=== PATIENT | male | born 1960 ===

== ENCOUNTER 2017-09-18 18:30 | Inpatient (IN) | payer MEDICAID, OTHER ==
[2017-09-18] MEDS ORDERED: Sodium Chloride 0.9% 1,000 ML IV ONE (21:21)
--- NOTE | 2017-09-18 21:52 | C.PDOC ---
History Of Present Illness 57 year old male presents to ED with complaints of abdominal pain x3 days status post eating "atypical food" and has a past medical history of diabetes mellitus (does not take medication, drinks "water with lemon"). Patient notes dark stool since ingestion. (+) SOB and AREVALO. also weakness and AREVALO with minimal exertion. no h/o GI bleeds Time Seen by Provider: 09/18/17 21:19 Chief Complaint (Nursing): Abdominal Pain History Per: Patient History/Exam Limitations: no limitations Onset/Duration Of Symptoms: Days (x3) Context: Food Associated Symptoms: Other ((+) SOB, AREVALO, dark stool) Last Bowel Movement: Today Past Medical History Reviewed: Historical Data, Nursing Documentation, Vital Signs Vital Signs: Last Vital Signs Temp 98 F 09/19/17 03:14 Pulse 112 H 09/19/17 03:14 Resp 18 09/19/17 03:14 BP 130/71 09/19/17 03:14 Pulse Ox 100 09/19/17 03:34 - Medical History PMH: Diabetes Family History: States: No Known Family Hx - Social History Hx Alcohol Use: No Hx Substance Use: No - Immunization History Hx Tetanus Toxoid Vaccination: No Hx Influenza Vaccination: No Hx Pneumococcal Vaccination: No Review Of Systems Except As Marked, All Systems Reviewed And Found Negative. Respiratory: Positive for: Shortness of Breath, SOB with Excertion, Other Gastrointestinal: Positive for: Abdominal Pain, Melena ((+) dark stool) Physical Exam - Physical Exam Appears: No Acute Distress, Other (Obese) Skin: No Normal Color, Warm, Dry, Pale Head: Atraumatic Eye(s): bilateral: Normal Inspection, PERRL, EOMI Nose: Normal Throat: Normal Neck: Normal Cardiovascular: Rhythm Regular Respiratory: Normal Breath Sounds Gastrointestinal/Abdominal: Normal Exam, Soft, No Tenderness Back: Normal Inspection Extremity: Normal ROM Neurological/Psych: Oriented x3, Normal Motor, Normal Sensation ED Course And Treatment - Laboratory Results Result Diagrams: 09/18/17 22:08 09/18/17 22:08 Lab Interpretation: Abnormal (++ leukocytosis and significant anemia, no prior labs to compare.) O2 Sat by Pulse Oximetry: 100 (RA) Pulse Ox Interpretation: Normal Progress Note: zosyn, IVF, protonix IV, blood transfusion Reevaluation Time: 00:33 Reassessment Condition: Improved - Physician Consult Information Outcome Of Conversation: 0030: d/w Dr. Luna- Hospitalist- will admit. Medical Decision Making Medical Decision Making: upper vs lower GIB- dark stools argue for upper. Denies diarrhea. 0030: CT pending, already admitted to Hospitalist Service. Obstructive series shows increased stool in right colon. CT FINDINGS: LIMITATIONS: Mild streak/motion artifact. LOWER THORAX: Small hiatal hernia. ABDOMEN: LIVER: No acute abnormality of the liver identified. GALLBLADDER AND BILE DUCTS: No CT evidence of acute cholecystitis. No evidence of significant biliary ductal dilatation. PANCREAS: No CT evidence of acute pancreatitis. SPLEEN: No acute abnormality of the spleen identified. ADRENALS: No acute abnormality of the adrenal glands identified. KIDNEYS AND URETERS: Small fluid density area in the left renal pelvis, most likely representing a peripelvic cyst. No renal stones, hydronephrosis, or hydroureter seen. STOMACH AND BOWEL: No acute abnormality of the stomach, small bowel or colon identified. No evidence of bowel obstruction. No evidence of diverticulitis. APPENDIX: Appendix is seen, and is within normal limits in appearance. PELVIS: BLADDER: No acute abnormality of the bladder identified. REPRODUCTIVE: No acute abnormality of the reproductive organs is seen. ABDOMEN and PELVIS: INTRAPERITONEAL SPACE: No evidence of free intraperitoneal air or fluid. BONES/JOINTS: No acute fractures or other acute bony abnormality noted. SOFT TISSUES: Small umbilical hernia, containing only fat. VASCULATURE: No evidence of abdominal aortic aneurysm. No evidence of periaortic hemorrhage. LYMPH NODES: No evidence of diffuse lymphadenopathy. IMPRESSION: - No evidence of significant acute process. No definite cause for pain identified. - See above for remaining findings. Disposition Doctor Will See Patient In The: Hospital Counseled Patient/Family Regarding: Studies Performed, Diagnosis - Disposition Disposition: HOSPITALIZED Disposition Time: 00:34 Condition: GOOD - Clinical Impression Clinical Impression: GI bleed Physician Patient Turnover Patient Signed Over To: Cassie Garcia Handoff Comments: follow-up CT and to be admitted to Hospitalists.
[2017-09-18] MEDS ORDERED: Sodium Chloride 0.9% 1,000 ML ONE (21:53)
[2017-09-18 22:16] LABS: BASO % 0.2 % (0.0-2.0); HEMOGLOBIN 7.2 g/dL (12.0-18.0); LYMPH # 2.6 K/uL (1.0-4.3); LYMPH % 12.3 % (20.0-40.0); MEAN CELL VOLUME 83.8 fL (80.0-94.0); MEAN CORPUSCULAR HEMOGLOBIN 27.2 pg (27.0-31.0); MEAN CORPUSCULAR HGB CONC 32.5 g/dL (33.0-37.0); MEAN PLATELET VOLUME 9.1 fL (7.2-11.7); MONO # 1.4 K/uL (0.0-0.8); MONO % 6.7 % (0.0-10.0); NEUT # 17.4 K/uL (1.8-7.0); NEUT % 80.8 % (50.0-75.0); NRBC % 0.5 % (0.0-2.0); RBC 2.64 Mil/uL (4.40-5.90); RED CELL DISTRIBUTION WIDTH 13.3 % (11.5-14.5); WHITE BLOOD COUNT 21.5 K/uL (4.8-10.8)
[2017-09-18 22:19] LABS: SQUAMOUS EPITHIAL < 1 /hpf (0-5); URINE BILIRUBIN NEGATIVE (NEGATIVE); URINE BLOOD NEGATIVE (NEGATIVE); URINE CLARITY Clear (Clear); URINE COLOR Straw (YELLOW); URINE GLUCOSE (UA) 1+ mg/dL (Normal); URINE LEUKOCYTE ESTERASE NEG Leu/uL (Negative); URINE NITRATE NEGATIVE (NEGATIVE); URINE PROTEIN NEGATIVE (NEGATIVE); URINE UROBILINOGEN NORMAL mg/dL (0.2-1.0)
[2017-09-18 22:26] LABS: INR 1.1; PROTHROMBIN TIME 12.7 SECONDS (9.7-12.2)
[2017-09-18 22:34] LABS: ALB/GLOB RATIO 1.3 (1.0-2.1); ALBUMIN 3.6 g/dL (3.5-5.0); ALT/SGPT 41 U/L (21-72); AST/SGOT 33 U/L (17-59); BLOOD UREA NITROGEN 23 mg/dL (9-20); CALCIUM 8.2 mg/dl (8.6-10.4); GFR AFRICAN-AMERICAN > 60; GFR NON-AFRICAN AMERICAN > 60; LIPASE 76 U/L (23-300)
[2017-09-19] MEDS ORDERED: Iohexol 350mg/ml 100 ML ONE (00:27)
[2017-09-19] MEDS ORDERED: Piperacillin/Tazobact 3.375 gm 100 ML IV STA (00:32)
--- NOTE | 2017-09-19 01:28 | CP.PCM.HP ---
<Dimas Luna P - Last Filed: 09/19/17 07:07> Meds Allergies/Adverse Reactions: Allergies Allergy/AdvReac Type Severity Reaction Status Date / Time No Known Allergies Allergy Verified 09/18/17 19:04 Results - Vital Signs Recent Vital Signs: Last Vital Signs Temp 98.5 F 09/19/17 06:27 Pulse 98 H 09/19/17 06:27 Resp 20 09/19/17 06:27 BP 114/73 09/19/17 06:27 Pulse Ox 100 09/19/17 06:27 - Labs Result Diagrams: 09/18/17 22:08 09/18/17 22:08 Labs: Laboratory Results - last 24 hr 09/18/17 09/18/17 09/18/17 22:08 22:08 22:08 WBC 21.5 H RBC 2.64 L Hgb 7.2 L Hct 22.2 L MCV 83.8 MCH 27.2 MCHC 32.5 L RDW 13.3 Plt Count 318 MPV 9.1 Neut % (Auto) 80.8 H Lymph % (Auto) 12.3 L [place] % (Auto) 6.7 Eos % (Auto) 0.0 Baso % (Auto) 0.2 Neut # 17.4 H Lymph # 2.6 [place] # 1.4 H Eos # 0.0 Baso # 0.0 PT 12.7 H INR 1.1 APTT 23 Sodium Potassium Chloride Carbon Dioxide Anion Gap BUN Creatinine Est GFR ( Amer) Est GFR (Non-Af Amer) POC Glucose (mg/dL) Random Glucose Calcium Total Bilirubin AST ALT Alkaline Phosphatase Total Protein Albumin Globulin Albumin/Globulin Ratio Lipase Urine Color Straw Urine Clarity Clear Urine pH 5.0 Ur Specific [place] 1.020 Urine Protein Negative Urine Glucose (UA) 1+ H Urine Ketones Negative Urine Blood Negative Urine Nitrate Negative Urine Bilirubin Negative Urine Urobilinogen Normal Ur Leukocyte Esterase Neg Urine WBC (Auto) 2 Urine RBC (Auto) < 1 Ur Squamous Epith Cells < 1 Blood Type Blood Type Confirm Antibody Screen 09/18/17 09/19/17 09/19/17 22:08 00:56 06:44 WBC RBC Hgb Hct MCV MCH MCHC RDW Plt Count MPV Neut % (Auto) Lymph % (Auto) [place] % (Auto) Eos % (Auto) Baso % (Auto) Neut # Lymph # [place] # Eos # Baso # PT INR APTT Sodium 127 L Potassium 4.0 Chloride 94 L Carbon Dioxide 24 Anion Gap 14 BUN 23 H Creatinine 0.8 Est GFR ( Amer) > 60 Est GFR (Non-Af Amer) > 60 POC Glucose (mg/dL) 147 H Random Glucose 159 H Calcium 8.2 L Total Bilirubin 0.3 AST 33 ALT 41 Alkaline Phosphatase 41 Total Protein 6.4 Albumin 3.6 Globulin 2.8 Albumin/Globulin Ratio 1.3 Lipase 76 Urine Color Urine Clarity Urine pH Ur Specific [place] Urine Protein Urine Glucose (UA) Urine Ketones Urine Blood Urine Nitrate Urine Bilirubin Urine Urobilinogen Ur Leukocyte Esterase Urine WBC (Auto) Urine RBC (Auto) Ur Squamous Epith Cells Blood Type B POSITIVE Blood Type Confirm B POSITIVE Antibody Screen Negative Attending/Attestation - Attestation I have personally seen and examined this patient.: Yes I have fully participated in the care of the patient.: Yes I have reviewed all pertinent clinical information: Yes Notes (Text): Assessment * Symptomatic anemia from it appears as UGI bleeding, pt present with olaf for 3 days, exposure to dicofenac for chronic knee arthritis, maintaining hemodynamics. Plan * PRBC will need 2-3 units * GI consult * PPI iv * Counselled about NSAIDs <Kate Hernandez - Last Filed: 09/19/17 12:09> History of Present Illness - History of Present Illness History of Present Illness: Medicine Note for Hospitalist Service CC: dark stools x 5 days HPI: 57M with PMHx of Osteoarthritis presents to the ED with dark stools x 5 days. Patient reports he went out to eat Monday and ate a bread custard, afterwards he had several episodes of diarrhea. After his 2-3 episode, he noted dark, tarry stools. He continued to feel feverish, chills, nausea, abdominal pain, SOB, dizziness, and 2-4 dark tarry stools per day. Patient came to the ED due to weakness and fatigue and persistent dark stools. Denied any prior EGD, Colonoscopy. Denied fever, chills, headache, chest pain, n/v/d/c, or urinary symptoms. PMHx: Osteoarthritis, IGT PSHx: Denied Meds: Heavy Diclofenac use for OA All: NKDA SHx: Denied tobacco, ETOH, or illicit drug use FHx: Unremarkable PMD: None; just moved to [place] from 2-3 months ago Present on Admission - Present on Admission Any Indicators Present on Admission: No Past Patient History - Past Social History Smoking Status: Never Smoked - PSYCHIATRIC Hx Substance Use: No - SURGICAL HISTORY Hx Surgeries: No - ANESTHESIA Hx Anesthesia: No Physical Exam - Constitutional Appears: No Acute Distress - Head Exam Head Exam: NORMAL INSPECTION, NORMOCEPHALIC - Eye Exam Eye Exam: EOMI, Normal appearance, PERRL Pupil Exam: NORMAL ACCOMODATION - ENT Exam ENT Exam: Mucous Membranes Dry - Respiratory Exam Respiratory Exam: Clear to Auscultation Bilateral, NORMAL BREATHING PATTERN. absent: Decreased Breath Sounds - Cardiovascular Exam Cardiovascular Exam: Tachycardia - GI/Abdominal Exam GI & Abdominal Exam: Normal Bowel Sounds, Soft, Tenderness (TTP RLQ ) - Rectal Exam Rectal Exam: Deferred - Extremities Exam Extremities exam: Positive for: normal inspection, pedal pulses present. Negative for: pedal edema, tenderness - Back Exam Back exam: NORMAL INSPECTION - Neurological Exam Neurological exam: Alert, CN II-XII Intact, Oriented x3 - Psychiatric Exam Psychiatric exam: Normal Affect, Normal Mood - Skin Skin Exam: Dry, Intact, Pallor Results - Vital Signs Recent Vital Signs: Last Vital Signs Temp 98.4 F 09/18/17 19:02 Pulse 112 H 09/18/17 19:02 Resp 18 09/18/17 19:02 BP 110/71 09/18/17 19:02 Pulse Ox 100 09/19/17 00:47 - Labs Result Diagrams: 09/19/17 06:36 09/19/17 06:36 Labs: Laboratory Results - last 24 hr 09/18/17 09/18/17 09/18/17 22:08 22:08 22:08 WBC 21.5 H RBC 2.64 L Hgb 7.2 L Hct 22.2 L MCV 83.8 MCH 27.2 MCHC 32.5 L RDW 13.3 Plt Count 318 MPV 9.1 Neut % (Auto) 80.8 H Lymph % (Auto) 12.3 L [place] % (Auto) 6.7 Eos % (Auto) 0.0 Baso % (Auto) 0.2 Neut # 17.4 H Lymph # 2.6 [place] # 1.4 H Eos # 0.0 Baso # 0.0 PT 12.7 H INR 1.1 APTT 23 Sodium Potassium Chloride Carbon Dioxide Anion Gap BUN Creatinine Est GFR ( Amer) Est GFR (Non-Af Amer) Random Glucose Calcium Total Bilirubin AST ALT Alkaline Phosphatase Total Protein Albumin Globulin Albumin/Globulin Ratio Lipase Urine Color Straw Urine Clarity Clear Urine pH 5.0 Ur Specific [place] 1.020 Urine Protein Negative Urine Glucose (UA) 1+ H Urine Ketones Negative Urine Blood Negative Urine Nitrate Negative Urine Bilirubin Negative Urine Urobilinogen Normal Ur Leukocyte Esterase Neg Urine WBC (Auto) 2 Urine RBC (Auto) < 1 Ur Squamous Epith Cells < 1 09/18/17 22:08 WBC RBC Hgb Hct MCV MCH MCHC RDW Plt Count MPV Neut % (Auto) Lymph % (Auto) [place] % (Auto) Eos % (Auto) Baso % (Auto) Neut # Lymph # [place] # Eos # Baso # PT INR APTT Sodium 127 L Potassium 4.0 Chloride 94 L Carbon Dioxide 24 Anion Gap 14 BUN 23 H Creatinine 0.8 Est GFR ( Amer) > 60 Est GFR (Non-Af Amer) > 60 Random Glucose 159 H Calcium 8.2 L Total Bilirubin 0.3 AST 33 ALT 41 Alkaline Phosphatase 41 Total Protein 6.4 Albumin 3.6 Globulin 2.8 Albumin/Globulin Ratio 1.3 Lipase 76 Urine Color Urine Clarity Urine pH Ur Specific [place] Urine Protein Urine Glucose (UA) Urine Ketones Urine Blood Urine Nitrate Urine Bilirubin Urine Urobilinogen Ur Leukocyte Esterase Urine WBC (Auto) Urine RBC (Auto) Ur Squamous Epith Cells Assessment & Plan - Assessment and Plan (Free Text) Assessment: 57M with PMHx of Osteoarthritis presents to the ED with dark stools x 5 days, suspecting Upper GI Bleed. Plan: Upper GI Bleed Hx Heavy NSAID Use GI Consulted - Dr. Campbell- help appreciated Tachycardia, H/H 7.2, 6.7 this morning Will be transfused total 2-3 units today, consent in chart CT Abdomen/ Pelvis: No evidence of significant acute process. No definite cause for pain identified. S/P EGD- no active bleed - esophagitis, medium sized hiatal hernia Possible Colonoscopy Meds: NS @ 100cc/hr Protonix 40mg IVP Q12H Leukocytosis Afebrile, leukocytosis , no bandemia Continue to monitor Hx IGT Accucheck ISS- low F/U HGA1C Prophylactic Measures GI PPX: Protonix 40mg IVP Q12H DVT PPX: SCDs, held VTE due to active GI bleed DW Dr. Luna, Kate Hernandez DO, PGY-1
[2017-09-19] MEDS ORDERED: Sodium Chloride 0.9% 1,000 ML IV SCH (02:30)
--- NOTE | 2017-09-19 03:02 | CT ---
EXAM: CT Abdomen and Pelvis With Intravenous Contrast EXAM DATE/TIME: 09/18/2017 11:32 PM CLINICAL HISTORY: 57 years old, male; Pain; Abdominal pain; Additional info: Abd pain, leukocytosis, ? diverticulitis TECHNIQUE: Axial computed tomography images of the abdomen and pelvis with intravenous contrast. All CT scans at this facility use one or more dose reduction techniques, viz.: automated exposure control; ma/kV adjustment per patient size (including targeted exams where dose is matched to indication; i.e. head); or iterative reconstruction technique. Coronal and sagittal reformatted images were created and reviewed. CONTRAST: 100 mL of [id number] administered intravenously. COMPARISON: No relevant prior studies available. FINDINGS: LIMITATIONS: Mild streak/motion artifact. LOWER THORAX: Small hiatal hernia. ABDOMEN: LIVER: No acute abnormality of the liver identified. GALLBLADDER AND BILE DUCTS: No CT evidence of acute cholecystitis. No evidence of significant biliary ductal dilatation. PANCREAS: No CT evidence of acute pancreatitis. SPLEEN: No acute abnormality of the spleen identified. ADRENALS: No acute abnormality of the adrenal glands identified. KIDNEYS AND URETERS: Small fluid density area in the left renal pelvis, most likely representing a peripelvic cyst. No renal stones, hydronephrosis, or hydroureter seen. STOMACH AND BOWEL: No acute abnormality of the stomach, small bowel or colon identified. No evidence of bowel obstruction. No evidence of diverticulitis. APPENDIX: Appendix is seen, and is within normal limits in appearance. PELVIS: BLADDER: No acute abnormality of the bladder identified. REPRODUCTIVE: No acute abnormality of the reproductive organs is seen. ABDOMEN and PELVIS: INTRAPERITONEAL SPACE: No evidence of free intraperitoneal air or fluid. BONES/JOINTS: No acute fractures or other acute bony abnormality noted. SOFT TISSUES: Small umbilical hernia, containing only fat. VASCULATURE: No evidence of abdominal aortic aneurysm. No evidence of periaortic hemorrhage. LYMPH NODES: No evidence of diffuse lymphadenopathy. IMPRESSION: - No evidence of significant acute process. No definite cause for pain identified. - See above for remaining findings.
[2017-09-19 07:15] LABS: BASO # 0.1 K/uL (0.0-0.2); BASO % 0.4 % (0.0-2.0); EOS % 0.2 % (0.0-4.0); HEMOGLOBIN 6.7 g/dL (12.0-18.0); LYMPH # 3.6 K/uL (1.0-4.3); LYMPH % 18.8 % (20.0-40.0); MEAN CELL VOLUME 84.4 fL (80.0-94.0); MEAN CORPUSCULAR HEMOGLOBIN 27.7 pg (27.0-31.0); MEAN CORPUSCULAR HGB CONC 32.8 g/dL (33.0-37.0); MONO # 1.6 K/uL (0.0-0.8); MONO % 8.3 % (0.0-10.0); NEUT # 13.8 K/uL (1.8-7.0); NEUT % 72.3 % (50.0-75.0); NRBC % 0.2 % (0.0-2.0); RBC 2.43 Mil/uL (4.40-5.90); RED CELL DISTRIBUTION WIDTH 13.2 % (11.5-14.5); WHITE BLOOD COUNT 19.1 K/uL (4.8-10.8)
[2017-09-19 07:17] LABS: ALB/GLOB RATIO 1.2 (1.0-2.1); ALBUMIN 3.3 g/dL (3.5-5.0); ALT/SGPT 41 U/L (21-72); AST/SGOT 28 U/L (17-59); BLOOD UREA NITROGEN 17 mg/dL (9-20); CALCIUM 7.8 mg/dl (8.6-10.4); GFR AFRICAN-AMERICAN > 60; GFR NON-AFRICAN AMERICAN > 60; MAGNESIUM 1.8 mg/dL (1.6-2.3)
[2017-09-19] MEDS ORDERED: Propofol 10 mg/ml Inj (20 ML) ONE (07:34)
[2017-09-19] MEDS ORDERED: Etomidate 20 mg/10ml Inj IV ONE ×3 (07:34→07:37)
--- NOTE | 2017-09-19 07:36 | CP.PCM.CON ---
History of Present Illness - History of Present Illness History of Present Illness: 3 days abdom pain- vague and black stool. LAst black stool yest pm. Weakness. ++NSAIDs for pain x 1-2 months. No alcohol Review of Systems - Constitutional Constitutional: Fatigue. absent: Headache, Weight Gain, Weight Loss - EENT Eyes: absent: Photophobia Nose/Mouth/Throat: absent: Odynophagia - Cardiovascular Cardiovascular: absent: Chest Pain, Dyspnea - Respiratory Respiratory: absent: Dyspnea, Hemoptysis, Wheezing - Gastrointestinal Gastrointestinal: Melena. absent: Coffee Ground Emesis, Constipation, Diarrhea , Hematemesis, Vomiting - Genitourinary Genitourinary: absent: Flank Pain, Hematuria - Musculoskeletal Musculoskeletal: absent: Muscle Cramps, Muscle Weakness - Integumentary Integumentary: absent: Jaundice - Neurological Neurological: absent: Convulsions - Psychiatric Psychiatric: absent: Confusion Past Patient History - Past Medical History & Family History Past Medical History?: Yes - Past Social History Smoking Status: Never Smoked - CARDIAC Hx Cardiac Disorders: No - PULMONARY Hx Respiratory Disorders: No - NEUROLOGICAL Hx Neurological Disorder: No - HEENT Hx HEENT Problems: No - RENAL Hx Chronic Kidney Disease: No - ENDOCRINE/METABOLIC Hx Endocrine Disorders: No - HEMATOLOGICAL/ONCOLOGICAL Hx Blood Disorders: No - INTEGUMENTARY Hx Dermatological Problems: No - MUSCULOSKELETAL/RHEUMATOLOGICAL Hx Musculoskeletal Disorders: Yes Hx Arthritis: Yes Hx Falls: No - GASTROINTESTINAL Hx Gastrointestinal Disorders: No - GENITOURINARY/GYNECOLOGICAL Hx Genitourinary Disorders: No - PSYCHIATRIC Hx Psychophysiologic Disorder: No Hx Substance Use: No - SURGICAL HISTORY Hx Surgeries: No - ANESTHESIA Hx Anesthesia: No Meds Allergies/Adverse Reactions: Allergies Allergy/AdvReac Type Severity Reaction Status Date / Time No Known Allergies Allergy Verified 09/18/17 19:04 - Medications Medications: Current Medications Sodium Chloride (Sodium Chloride 0.9%) 1,000 mls @ 100 mls/hr IV .Q10H ESTEFANIA Last Admin: 09/19/17 02:48 Dose: 100 mls/hr Pantoprazole Sodium (Protonix Inj) 40 mg IVP Q12H [facility] Pneumococcal Polyvalent Vaccine (Pneumovax 23 Vaccine) 0.5 ml IM .ONCE ONE Stop: 09/22/17 14:01 Physical Exam - Constitutional Appears: Well - Respiratory Exam Respiratory Exam: Clear to Auscultation Bilateral - Cardiovascular Exam Cardiovascular Exam: RRR - GI/Abdominal Exam GI & Abdominal Exam: Normal Bowel Sounds, Soft. absent: Distended, Guarding, Mass, Rebound, Tenderness - Extremities Exam Extremities exam: Negative for: calf tenderness - Neurological Exam Neurological exam: Alert, Oriented x3 Results - Vital Signs Recent Vital Signs: Last Vital Signs Temp 98.5 F 09/19/17 07:11 Pulse 98 H 09/19/17 07:11 Resp 20 09/19/17 07:11 BP 114/73 09/19/17 07:11 Pulse Ox 100 09/19/17 07:11 - Labs Result Diagrams: 09/19/17 06:36 09/19/17 06:36 Labs: Laboratory Results - last 24 hr 09/18/17 09/18/17 09/18/17 22:08 22:08 22:08 WBC 21.5 H RBC 2.64 L Hgb 7.2 L Hct 22.2 L MCV 83.8 MCH 27.2 MCHC 32.5 L RDW 13.3 Plt Count 318 MPV 9.1 Neut % (Auto) 80.8 H Lymph % (Auto) 12.3 L [place] % (Auto) 6.7 Eos % (Auto) 0.0 Baso % (Auto) 0.2 Neut # 17.4 H Lymph # 2.6 [place] # 1.4 H Eos # 0.0 Baso # 0.0 PT 12.7 H INR 1.1 APTT 23 Sodium Potassium Chloride Carbon Dioxide Anion Gap BUN Creatinine Est GFR ( Amer) Est GFR (Non-Af Amer) POC Glucose (mg/dL) Random Glucose Calcium Phosphorus Magnesium Total Bilirubin AST ALT Alkaline Phosphatase Total Protein Albumin Globulin Albumin/Globulin Ratio Lipase Urine Color Straw Urine Clarity Clear Urine pH 5.0 Ur Specific [place] 1.020 Urine Protein Negative Urine Glucose (UA) 1+ H Urine Ketones Negative Urine Blood Negative Urine Nitrate Negative Urine Bilirubin Negative Urine Urobilinogen Normal Ur Leukocyte Esterase Neg Urine WBC (Auto) 2 Urine RBC (Auto) < 1 Ur Squamous Epith Cells < 1 Blood Type Blood Type Confirm Antibody Screen 09/18/17 09/19/17 09/19/17 22:08 00:56 06:36 WBC 19.1 H RBC 2.43 L Hgb 6.7 L Hct 20.5 L MCV 84.4 MCH 27.7 MCHC 32.8 L RDW 13.2 Plt Count 267 MPV 9.0 Neut % (Auto) 72.3 Lymph % (Auto) 18.8 L [place] % (Auto) 8.3 Eos % (Auto) 0.2 Baso % (Auto) 0.4 Neut # 13.8 H Lymph # 3.6 [place] # 1.6 H Eos # 0.0 Baso # 0.1 PT INR APTT Sodium 127 L Potassium 4.0 Chloride 94 L Carbon Dioxide 24 Anion Gap 14 BUN 23 H Creatinine 0.8 Est GFR ( Amer) > 60 Est GFR (Non-Af Amer) > 60 POC Glucose (mg/dL) Random Glucose 159 H Calcium 8.2 L Phosphorus Magnesium Total Bilirubin 0.3 AST 33 ALT 41 Alkaline Phosphatase 41 Total Protein 6.4 Albumin 3.6 Globulin 2.8 Albumin/Globulin Ratio 1.3 Lipase 76 Urine Color Urine Clarity Urine pH Ur Specific [place] Urine Protein Urine Glucose (UA) Urine Ketones Urine Blood Urine Nitrate Urine Bilirubin Urine Urobilinogen Ur Leukocyte Esterase Urine WBC (Auto) Urine RBC (Auto) Ur Squamous Epith Cells Blood Type B POSITIVE Blood Type Confirm B POSITIVE Antibody Screen Negative 09/19/17 09/19/17 09/19/17 06:36 06:36 06:44 WBC RBC Hgb Hct MCV MCH MCHC RDW Plt Count MPV Neut % (Auto) Lymph % (Auto) [place] % (Auto) Eos % (Auto) Baso % (Auto) Neut # Lymph # [place] # Eos # Baso # PT INR APTT Sodium 132 Potassium 4.0 Chloride 98 Carbon Dioxide 22 Anion Gap 17 BUN 17 Creatinine 0.9 Est GFR ( Amer) > 60 Est GFR (Non-Af Amer) > 60 POC Glucose (mg/dL) 147 H Random Glucose 112 H Calcium 7.8 L Phosphorus 3.7 Magnesium 1.8 Total Bilirubin 0.4 AST 28 ALT 41 Alkaline Phosphatase 33 L Total Protein 6.0 L Albumin 3.3 L Globulin 2.7 Albumin/Globulin Ratio 1.2 Lipase Urine Color Urine Clarity Urine pH Ur Specific [place] Urine Protein Urine Glucose (UA) Urine Ketones Urine Blood Urine Nitrate Urine Bilirubin Urine Urobilinogen Ur Leukocyte Esterase Urine WBC (Auto) Urine RBC (Auto) Ur Squamous Epith Cells Blood Type Blood Type Confirm Antibody Screen Assessment & Plan (1) Abdominal pain Assessment and Plan: consider ulcer. CT noted Status: Acute (2) GI bleed Assessment and Plan: Consider ulcer, MWT, ectasia. Also hyponatremia and elevated WBC, REC: Protonix NPO EGD today- due to serious GI bleed. F/U CBC, WBC, Na Status: Acute
[2017-09-19] MEDS ORDERED: Dextrose 50% SYRINGE Inj (50 ml) IV PRN (09:02)
[2017-09-19] MEDS ORDERED: Glucagon Recombinant 1 mg Inj IM PRN (09:02)
--- NOTE | 2017-09-19 13:14 | RAD ---
PROCEDURE: Radiographs of the chest and abdomen (obstructive series) HISTORY: abd pain COMPARISON: No prior. TECHNIQUE: AP radiograph of the chest, with upright and supine radiographs of the abdomen. FINDINGS: CHEST: Lungs: Clear. Cardiovascular: Normal size heart. No pulmonary vascular congestion. Pleura: No pleural fluid. No pneumothorax. Other findings: Bilateral shoulder arthrosis ABDOMEN AND PELVIS: Bowel: Stool retention.. No evidence of mechanical obstruction. Free air: None. Bones: Unremarkable. Other findings: None. IMPRESSION: No infiltrate. Stool retention.. No evidence of mechanical bowel obstruction. Bilateral shoulder arthrosis
[2017-09-19] MEDS: (Novolin R) Insulin Human Regular 100 units/ml vial SC SCH ×2 (17:10→22:47)
--- NOTE | 2017-09-19 19:28 | CP.PCM.PN ---
Subjective - Date & Time of Evaluation Date of Evaluation: 09/19/17 Time of Evaluation: 08:45 - Subjective Subjective: Hospitalist Progress Note Patient was seen and examined at 8:45 AM 09/19/17 in the [facility] 57 year old male who was admitted earlier this morning with complaints of black stools. He had an unspecified sandwich on this past Monday. Shortly afterwards, he had soft black movement and has been having at least 2 of these per day since. Associated with with the black bowel movements is SOB and Lightheadedness and therefore he came to the ER. CT Abdomen/Pelvis did not reveal any significant acute process (please see full report). Obstruction Series did NOT reveal any obstruction but did show retain stool. His Hgb was in the low 7 and he was transfused 1 unit of PRBC at the time of exam 09/19/17 and 2 more units ordered as HgB dropped further to 6.7. Upper EGD preliminary revealed esophagitis but no ulcers. Bedside Guaiac was +. NO chest pain NO palpitations NO dysphagia/odynophagia NO abdominal pain NO n/v/d/c NO headache NO changes in vision NO changes in hearing NO paresthesias NO edema Exam: General: AAOX3, NAD HEENT: NCA, EOMI, PERRLA, NO thyromegaly, NO cervical/supraclavicular/ submandibular lymphadenopathy, NO pharyngeal erythema/exudate Cardio: NS1 and NS2, NO M/R/G Resp: CTA B/L , NO R/R/W GI: BSx4, soft, NT, ND, NO HSM, NO guarding/rebound tenderness Ext: NO edema, Pulses are strong and equal, Capillary Refill is 2 seconds Neuro: CN II through XII are grossly intact Assessment and Plan: 1). Anemia Secondary to GI Bleed F/U official Upper EGD report Transfuse 2 more units PRBC and follow up repeat CBC at 10 PM and transfuse another unit should the HgB still be below 8 Protonix 40 mg IV Q12H Consider Colonoscopy Will follow up with GI Dr. Campbell whose help is appreciated 2). Leukocytosis NO shift noted Chest X Ray (as part of obstruction series) shows NO active disease There is NO fever and rest of vitals are stable Stress response? Follow up repeat CBC at 10 PM tonight 3). Hyponatremia This has resolved 4). Hx DM 2 ? F/U HgBA1C, Lipid Panel, TSH, T4 Hypoglycemic Protocol RISS ACHS 5). Prophylaxis Protonix as above HOLD anticoagulation considering the Anemia from the likely GI Bleed Colace 100 mg PO 2x/day Heart Healthy 2 gm Na Diabetic Diet He has NO Advance Directive He would like to be FULL CODE He has designated Chanel Sorto [phone] as his Health Care Proxy Jayson Agnel D.O. Objective - Vital Signs/Intake and Output Vital Signs (last 24 hours): Temp Pulse Resp BP Pulse Ox 98.3 F 88 18 135/86 100 09/19/17 15:19 09/19/17 15:19 09/19/17 15:19 09/19/17 15:19 09/19/17 15:19 Intake and Output: 09/19/17 09/20/17 18:59 06:59 Intake Total 525 Balance 525 - Medications Medications: Current Medications Dextrose (Dextrose 50% Inj) 0 ml IV STAT PRN; Protocol PRN Reason: Hypoglycemia Protocol Dextrose (Glutose 15) 0 gm PO ONCE PRN; Protocol PRN Reason: Hypoglycemia Protocol Glucagon (Glucagen Diagnostic Kit) 0 mg IM STAT PRN; Protocol PRN Reason: Hypoglycemia Protocol Sodium Chloride (Sodium Chloride 0.9%) 1,000 mls @ 100 mls/hr IV .Q10H [facility] Last Admin: 09/19/17 02:48 Dose: 100 mls/hr Dextrose (Dextrose 5% In Water 1000 Ml) 1,000 mls @ 0 mls/hr IV .Q0M PRN; Protocol; Per Protocol PRN Reason: Hypoglycemia Protocol Insulin Human Regular (Novolin R) 0 unit SC ACHS [facility] PRN Reason: Protocol Pantoprazole Sodium (Protonix Inj) 40 mg IVP Q12H [facility] Pneumococcal Polyvalent Vaccine (Pneumovax 23 Vaccine) 0.5 ml IM .ONCE ONE Stop: 09/22/17 14:01 - Labs Labs: 09/19/17 16:52 09/19/17 06:36 PT 12.7 SECONDS (9.7-12.2) H 09/18/17 22:08 INR 1.1 09/18/17 22:08 APTT 23 SECONDS (21-34) 09/18/17 22:08
--- NOTE | 2017-09-19 19:57 | CP.PCM.PN ---
Subjective - Date & Time of Evaluation Date of Evaluation: 09/19/17 Time of Evaluation: 08:55 - Subjective Subjective: Patient seen and examined at bedside. Per nursing staff no acute events occurred overnight . The patient is reporting some abdominal discomfort today. The patient denies any chest pain, fevers, chills, lightheadedness, dizziness, syncopal episodes, changes in vision, headaches, sore throat, numbness or tingling in the hands or feet, or any other complaints. Objective - Vital Signs/Intake and Output Vital Signs (last 24 hours): Temp Pulse Resp BP Pulse Ox 98.3 F 88 18 135/86 100 09/19/17 15:19 09/19/17 15:19 09/19/17 15:19 09/19/17 15:19 09/19/17 15:19 Intake and Output: 09/19/17 09/20/17 18:59 06:59 Intake Total 525 Balance 525 - Medications Medications: Current Medications Dextrose (Dextrose 50% Inj) 0 ml IV STAT PRN; Protocol PRN Reason: Hypoglycemia Protocol Dextrose (Glutose 15) 0 gm PO ONCE PRN; Protocol PRN Reason: Hypoglycemia Protocol Docusate Sodium (Colace) 100 mg PO BID [facility] Glucagon (Glucagen Diagnostic Kit) 0 mg IM STAT PRN; Protocol PRN Reason: Hypoglycemia Protocol Dextrose (Dextrose 5% In Water 1000 Ml) 1,000 mls @ 0 mls/hr IV .Q0M PRN; Protocol; Per Protocol PRN Reason: Hypoglycemia Protocol Insulin Human Regular (Novolin R) 0 unit SC ACHS [facility] PRN Reason: Protocol Pantoprazole Sodium (Protonix Inj) 40 mg IVP Q12H [facility] Pneumococcal Polyvalent Vaccine (Pneumovax 23 Vaccine) 0.5 ml IM .ONCE ONE Stop: 09/22/17 14:01 - Labs Labs: 09/19/17 16:52 09/19/17 06:36 PT 12.7 SECONDS (9.7-12.2) H 09/18/17 22:08 INR 1.1 09/18/17 22:08 APTT 23 SECONDS (21-34) 09/18/17 22:08 - Head Exam Head Exam: ATRAUMATIC, NORMAL INSPECTION, NORMOCEPHALIC - Eye Exam Eye Exam: EOMI, Normal appearance, PERRL. absent: Periorbital tenderness Pupil Exam: NORMAL ACCOMODATION, PERRL. absent: Irregular, Unequal - ENT Exam ENT Exam: Mucous Membranes Moist, Normal Exam, Normal Oropharynx - Neck Exam Neck Exam: Normal Inspection. absent: Lymphadenopathy, Thyromegaly - Respiratory Exam Respiratory Exam: Clear to Ausculation Bilateral, NORMAL BREATHING PATTERN. absent: Chest Wall Tenderness, Prolonged Expiratory Phase, Respiratory Distress - Cardiovascular Exam Cardiovascular Exam: REGULAR RHYTHM, +S1, +S2 - GI/Abdominal Exam GI & Abdominal Exam: Tenderness, Normal Bowel Sounds. absent: Hyperactive Bowel Sounds - Extremities Exam Extremities Exam: absent: Joint Swelling, Pedal Edema, Tenderness - Back Exam Back Exam: NORMAL INSPECTION. absent: CVA tenderness (R), paraspinal tenderness - Neurological Exam Neurological Exam: Alert, Awake, CN II-XII Intact, Normal Gait, Oriented x3 - Psychiatric Exam Psychiatric exam: Normal Affect, Normal Mood - Skin Skin Exam: Dry, Intact Assessment and Plan - Assessment and Plan (Free Text) Plan: Assessment and Plan: 1). Anemia Secondary to GI Bleed F/U official Upper EGD report Transfuse 2 more units PRBC and follow up repeat CBC at 10 PM and transfuse another unit should the HgB still be below 8 Protonix 40 mg IV Q12H Consider Colonoscopy Will follow up with GI Dr. Campbell whose help is appreciated 2). Leukocytosis NO shift noted Chest X Ray (as part of obstruction series) shows NO active disease There is NO fever and rest of vitals are stable Stress response? Follow up repeat CBC at 10 PM tonight 3). Hyponatremia This has resolved 4). Hx DM 2 ? F/U HgBA1C, Lipid Panel, TSH, T4 Hypoglycemic Protocol RISS ACHS 5). Prophylaxis Protonix as above HOLD anticoagulation considering the Anemia from the likely GI Bleed Colace 100 mg PO 2x/day Heart Healthy 2 gm Na Diabetic Diet He has NO Advance Directive He would like to be FULL CODE He has designated Chanel Sorto [phone] as his Health Care Proxy
[2017-09-20] MEDS: (Novolin R) Insulin Human Regular 100 units/ml vial SC SCH ×2 (07:36→22:42)
[2017-09-20 07:52] LABS: BASO # 0.1 K/uL (0.0-0.2); BASO % 0.6 % (0.0-2.0); EOS # 0.1 K/uL (0.0-0.7); EOS % 0.8 % (0.0-4.0); HEMOGLOBIN 8.9 g/dL (12.0-18.0); LYMPH # 2.8 K/uL (1.0-4.3); LYMPH % 20.3 % (20.0-40.0); MEAN CELL VOLUME 83.2 fL (80.0-94.0); MEAN CORPUSCULAR HEMOGLOBIN 28.2 pg (27.0-31.0); MEAN CORPUSCULAR HGB CONC 33.8 g/dL (33.0-37.0); MONO % 7.5 % (0.0-10.0); NEUT # 9.9 K/uL (1.8-7.0); NEUT % 70.8 % (50.0-75.0); NRBC % 0.4 % (0.0-2.0); RBC 3.15 Mil/uL (4.40-5.90)
[2017-09-20 08:50] LABS: ALB/GLOB RATIO 1.2 (1.0-2.1); ALBUMIN 3.1 g/dL (3.5-5.0); ALT/SGPT 44 U/L (21-72); AST/SGOT 29 U/L (17-59); BLOOD UREA NITROGEN 12 mg/dL (9-20); CALCIUM 7.9 mg/dl (8.6-10.4); GFR AFRICAN-AMERICAN > 60; GFR NON-AFRICAN AMERICAN > 60; HDL CHOLESTEROL 26 mg/dL (30-70); MAGNESIUM 1.9 mg/dL (1.6-2.3)
[2017-09-20 08:54] LABS: LDL CHOLESTEROL 106 mg/dL (0-129)
--- NOTE | 2017-09-20 11:53 | CP.PCM.PN ---
Subjective - Date & Time of Evaluation Date of Evaluation: 09/20/17 Time of Evaluation: 11:50 - Subjective Subjective: F/U GI bleed. Reports constiaption. No bleeding Denies CP, SOB, fever, chills, SZ, LOC, MCDONALD, cough Objective - Vital Signs/Intake and Output Vital Signs (last 24 hours): Temp Pulse Resp BP Pulse Ox 98.1 F 81 20 128/77 97 09/20/17 07:00 09/20/17 07:00 09/20/17 07:00 09/20/17 07:00 09/20/17 07:00 Intake and Output: 09/20/17 09/20/17 06:59 18:59 Intake Total 325 Balance 325 - Medications Medications: Current Medications Acetaminophen (Tylenol 325mg Tab) 650 mg PO Q6 PRN PRN Reason: Headache Last Admin: 09/20/17 08:51 Dose: 650 mg Dextrose (Dextrose 50% Inj) 0 ml IV STAT PRN; Protocol PRN Reason: Hypoglycemia Protocol Dextrose (Glutose 15) 0 gm PO ONCE PRN; Protocol PRN Reason: Hypoglycemia Protocol Docusate Sodium (Colace) 100 mg PO BID [facility] Last Admin: 09/20/17 10:59 Dose: 100 mg Glucagon (Glucagen Diagnostic Kit) 0 mg IM STAT PRN; Protocol PRN Reason: Hypoglycemia Protocol Dextrose (Dextrose 5% In Water 1000 Ml) 1,000 mls @ 0 mls/hr IV .Q0M PRN; Protocol; Per Protocol PRN Reason: Hypoglycemia Protocol Insulin Human Regular (Novolin R) 0 unit SC ACHS [facility] PRN Reason: Protocol Last Admin: 09/20/17 07:36 Dose: Not Given Pantoprazole Sodium (Protonix Inj) 40 mg IVP Q12H [facility] Last Admin: 09/20/17 08:14 Dose: 40 mg Pneumococcal Polyvalent Vaccine (Pneumovax 23 Vaccine) 0.5 ml IM .ONCE ONE Stop: 09/22/17 14:01 Polyethylene Glycol/Electrolytes (Golytely) 4,000 ml PO ONCE ONE Stop: 09/20/17 18:01 - Labs Labs: 09/20/17 07:36 09/20/17 07:36 PT 12.7 SECONDS (9.7-12.2) H 09/18/17 22:08 INR 1.1 09/18/17 22:08 APTT 23 SECONDS (21-34) 09/18/17 22:08 - Constitutional Appears: Well - Respiratory Exam Respiratory Exam: Clear to Ausculation Bilateral - Cardiovascular Exam Cardiovascular Exam: REGULAR RHYTHM - GI/Abdominal Exam GI & Abdominal Exam: Soft, Normal Bowel Sounds. absent: Tenderness, Rebound - Extremities Exam Extremities Exam: absent: Pedal Edema - Neurological Exam Neurological Exam: Alert, Oriented x3 Assessment and Plan (1) Abdominal pain Assessment & Plan: Better Status: Acute (2) GI bleed Assessment & Plan: EGD neg. Reports dark stool before. Consider colon lesion. Colonsoocpy Status: Acute (3) Constipated Status: Acute (4) Hyponatremia Assessment & Plan: Improving Status: Acute (5) Leukocytosis Assessment & Plan: Improving Status: Acute
--- NOTE | 2017-09-20 13:46 | CP.PCM.PN ---
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 Per nursing no acute events occurred over midnight. The patient reports some constipation and persistent dark tarry stools. The patient denies any abdominal pain, chest pain, headaches, lightheadedness, dizziness, changes in vision, nausea, vomiting, fevers, chills , or any other complaints. Objective - Vital Signs/Intake and Output Vital Signs (last 24 hours): Temp Pulse Resp BP Pulse Ox 98.1 F 81 20 128/77 97 09/20/17 07:00 09/20/17 07:00 09/20/17 07:00 09/20/17 07:00 09/20/17 07:00 Intake and Output: 09/20/17 09/20/17 06:59 18:59 Intake Total 325 Balance 325 - Medications Medications: Current Medications Acetaminophen (Tylenol 325mg Tab) 650 mg PO Q6 PRN PRN Reason: Headache Last Admin: 09/20/17 08:51 Dose: 650 mg Dextrose (Dextrose 50% Inj) 0 ml IV STAT PRN; Protocol PRN Reason: Hypoglycemia Protocol Dextrose (Glutose 15) 0 gm PO ONCE PRN; Protocol PRN Reason: Hypoglycemia Protocol Docusate Sodium (Colace) 100 mg PO BID [facility] Last Admin: 09/20/17 10:59 Dose: 100 mg Glucagon (Glucagen Diagnostic Kit) 0 mg IM STAT PRN; Protocol PRN Reason: Hypoglycemia Protocol Dextrose (Dextrose 5% In Water 1000 Ml) 1,000 mls @ 0 mls/hr IV .Q0M PRN; Protocol; Per Protocol PRN Reason: Hypoglycemia Protocol Insulin Human Regular (Novolin R) 0 unit SC ACHS [facility] PRN Reason: Protocol Last Admin: 09/20/17 07:36 Dose: Not Given Pantoprazole Sodium (Protonix Inj) 40 mg IVP Q12H [facility] Last Admin: 09/20/17 08:14 Dose: 40 mg Pneumococcal Polyvalent Vaccine (Pneumovax 23 Vaccine) 0.5 ml IM .ONCE ONE Stop: 09/22/17 14:01 Polyethylene Glycol/Electrolytes (Golytely) 4,000 ml PO ONCE ONE Stop: 09/20/17 18:01 - Labs Labs: 09/20/17 07:36 09/20/17 07:36 PT 12.7 SECONDS (9.7-12.2) H 09/18/17 22:08 INR 1.1 09/18/17 22:08 APTT 23 SECONDS (21-34) 09/18/17 22:08 - Head Exam Head Exam: ATRAUMATIC, NORMAL INSPECTION, NORMOCEPHALIC - Eye Exam Eye Exam: EOMI, Normal appearance, PERRL. absent: Periorbital tenderness Pupil Exam: NORMAL ACCOMODATION, PERRL. absent: Irregular, Unequal - ENT Exam ENT Exam: Mucous Membranes Moist, Normal Exam, Normal Oropharynx - Neck Exam Neck Exam: Normal Inspection. absent: Lymphadenopathy, Thyromegaly - Respiratory Exam Respiratory Exam: Clear to Ausculation Bilateral, NORMAL BREATHING PATTERN. absent: Chest Wall Tenderness, Prolonged Expiratory Phase, Respiratory Distress - Cardiovascular Exam Cardiovascular Exam: REGULAR RHYTHM, RRR, +S1, +S2. absent: Rubs - GI/Abdominal Exam GI & Abdominal Exam: Soft, Normal Bowel Sounds. absent: Rigid, Hyperactive Bowel Sounds - Extremities Exam Extremities Exam: Full ROM, Normal Inspection. absent: Pedal Edema - Back Exam Back Exam: NORMAL INSPECTION. absent: CVA tenderness (L), CVA tenderness (R), paraspinal tenderness - Neurological Exam Neurological Exam: Alert, Awake, CN II-XII Intact, Normal Gait, Oriented x3 - Psychiatric Exam Psychiatric exam: Normal Affect, Normal Mood. absent: Depressed, Flat Affect, Suicidal Ideation - Skin Skin Exam: Dry, Intact, Normal Color, Warm Assessment and Plan - Assessment and Plan (Free Text) Plan: 1). Anemia Secondary to GI Bleed F/U official Upper EGD report Transfuse 2 more units PRBC and follow up repeat CBC at 10 PM and transfuse another unit should the HgB still be below 8 Protonix 40 mg IV Q12H EGD results showed: Grade A esophagitis, Hiatus hernia Scheduled for a colonoscopy on per Dr. Campbell's note. 2). Leukocytosis NO shift noted Chest X Ray (as part of obstruction series) shows NO active disease There is NO fever and rest of vitals are stable Stress response? 3). Hyponatremia 131 Today. No intervention at this time. Will continue to monitor with serial CMP's. 4). Hx DM 2 ? Hemoglobin A1C: 7.6% Lipid Panel, TSH, T4 Hypoglycemic Protocol RISS ACHS 5). Prophylaxis Protonix as above HOLD anticoagulation considering the Anemia from the likely GI Bleed Colace 100 mg PO 2x/day Heart Healthy 2 gm Na Diabetic Diet He has NO Advance Directive He would like to be FULL CODE He has designated Chanel Sorto [phone] as his Health Care Proxy <Jayson Angel - Last Filed: 09/20/17 20:13> Objective - Vital Signs/Intake and Output Vital Signs (last 24 hours): Temp Pulse Resp BP Pulse Ox 98.2 F 73 20 124/79 100 09/20/17 15:23 09/20/17 15:30 09/20/17 15:23 09/20/17 15:23 09/20/17 15:23 - Medications Medications: Current Medications Acetaminophen (Tylenol 325mg Tab) 650 mg PO Q6 PRN PRN Reason: Headache Last Admin: 09/20/17 08:51 Dose: 650 mg Dextrose (Dextrose 50% Inj) 0 ml IV STAT PRN; Protocol PRN Reason: Hypoglycemia Protocol Dextrose (Glutose 15) 0 gm PO ONCE PRN; Protocol PRN Reason: Hypoglycemia Protocol Docusate Sodium (Colace) 100 mg PO BID [facility] Last Admin: 09/20/17 19:23 Dose: 100 mg Glucagon (Glucagen Diagnostic Kit) 0 mg IM STAT PRN; Protocol PRN Reason: Hypoglycemia Protocol Dextrose (Dextrose 5% In Water 1000 Ml) 1,000 mls @ 0 mls/hr IV .Q0M PRN; Protocol; Per Protocol PRN Reason: Hypoglycemia Protocol Insulin Human Regular (Novolin R) 0 unit SC ACHS [facility] PRN Reason: Protocol Last Admin: 09/20/17 07:36 Dose: Not Given Pantoprazole Sodium (Protonix Inj) 40 mg IVP Q12H [facility] Last Admin: 09/20/17 08:14 Dose: 40 mg Pneumococcal Polyvalent Vaccine (Pneumovax 23 Vaccine) 0.5 ml IM .ONCE ONE Stop: 09/22/17 14:01 - Labs Labs: 09/20/17 07:36 09/20/17 07:36 PT 12.7 SECONDS (9.7-12.2) H 09/18/17 22:08 INR 1.1 09/18/17 22:08 APTT 23 SECONDS (21-34) 09/18/17 22:08 Attending/Attestation - Attestation I have personally seen and examined this patient.: Yes I have fully participated in the care of the patient.: Yes I have reviewed all pertinent clinical information, including history, physical exam and plan: Yes Notes (Text): 09/20/17 20:06 Hospitalist Progress Note Patient was seen and examined at 8:30 AM 09/20/17 657 A 57 year old male who was admitted morning of 09/19/17 with complaints of black stools. He had an unspecified sandwich on this past Monday. Shortly afterwards, he had soft black movement and has been having at least 2 of these per day since. Associated with with the black bowel movements is SOB and Lightheadedness and therefore he came to the ER. CT Abdomen/Pelvis did not reveal any significant acute process (please see full report). Obstruction Series did NOT reveal any obstruction but did show retain stool. Upper EGD revealed esophagitis but no ulcers. Bedside Guaiac 09/19/17 was POSITIVE. His Hgb was in the low 7 and he was transfused 1 unit of PRBC on morning of 09/19/17 and 2 more units during the day on 09/19/17. HgB/Hct subsequently remained stable but patient continued to have black bowel movements on 09/20/17. Colonoscopy is planned for 09/21/17. NO chest pain NO palpitations NO dysphagia/odynophagia NO abdominal pain NO n/v/d/c NO headache NO changes in vision NO changes in hearing NO paresthesias NO edema Exam: General: AAOX3, NAD HEENT: NCA, EOMI, PERRLA, NO thyromegaly, NO cervical/supraclavicular/ submandibular lymphadenopathy, NO pharyngeal erythema/exudate Cardio: NS1 and NS2, NO M/R/G Resp: CTA B/L , NO R/R/W GI: BSx4, soft, NT, ND, NO HSM, NO guarding/rebound tenderness Ext: NO edema, Pulses are strong and equal, Capillary Refill is 2 seconds Neuro: CN II through XII are grossly intact Assessment and Plan: 1). Anemia Secondary to GI Bleed Has received 3 units PRBC since admission Protonix 40 mg IV Q12H Colonoscopy planned for 09/21/17: GoLytly ordered for 6 PM 09/20/17 and clear liquid diet without any dark liquids GI Dr. Campbell help is appreciated 2). Leukocytosis NO shift noted Chest X Ray (as part of obstruction series) shows NO active disease There is NO fever and rest of vitals are stable Stress response? Trending down 3). Hyponatremia This has essentially resolved 4). Hx DM 2 HgBA1C is 7.6 Hypoglycemic Protocol RISS ACHS NOT on any medications at home and states that he has controlled this with Lemon Juice daily. Will add Metformin, OSCAR I, and Statin after Colonoscopy 09/21/17 5). Prophylaxis Protonix as above HOLD anticoagulation considering the Anemia from the likely GI Bleed Colace 100 mg PO 2x/day Tylenol 650 mg PO Q6H PRN MCDONALD Clear liquid diet without any dark liquids for planned Colonoscopy 09/21/17 He has NO Advance Directive He would like to be FULL CODE He has designated Chanel Sorto [phone] as his Health Care Proxy Jayson Angel D.O.
[2017-09-20] MEDS ORDERED: Peg-Electrolyte Oral Soln 4L (Golytely) PO ONE (18:00)
[2017-09-21 07:28] LABS: BASO # 0.1 K/uL (0.0-0.2); BASO % 0.6 % (0.0-2.0); EOS # 0.2 K/uL (0.0-0.7); EOS % 1.2 % (0.0-4.0); HEMOGLOBIN 10.1 g/dL (12.0-18.0); LYMPH # 2.4 K/uL (1.0-4.3); LYMPH % 18.7 % (20.0-40.0); MEAN CELL VOLUME 83.2 fL (80.0-94.0); MEAN CORPUSCULAR HEMOGLOBIN 29.1 pg (27.0-31.0); MONO # 0.9 K/uL (0.0-0.8); NEUT # 9.2 K/uL (1.8-7.0); NEUT % 72.5 % (50.0-75.0); NRBC % 0.2 % (0.0-2.0); RBC 3.49 Mil/uL (4.40-5.90); WHITE BLOOD COUNT 12.7 K/uL (4.8-10.8)
[2017-09-21 07:31] LABS: ALB/GLOB RATIO 1.3 (1.0-2.1); ALBUMIN 3.5 g/dL (3.5-5.0); ALT/SGPT 62 U/L (21-72); AST/SGOT 29 U/L (17-59); BLOOD UREA NITROGEN 8 mg/dL (9-20); CALCIUM 8.1 mg/dl (8.6-10.4); GFR AFRICAN-AMERICAN > 60; GFR NON-AFRICAN AMERICAN > 60
[2017-09-21] MEDS ORDERED: Propofol 10 mg/ml Inj (20 ML) ONE (08:05)
[2017-09-21] MEDS ORDERED: Lactated Ringer's 1,000 ML IV ONE (08:15)
[2017-09-21] MEDS: (Novolin R) Insulin Human Regular 100 units/ml vial SC SCH ×4 (09:11→21:16)
[2017-09-21] MEDS ORDERED: Influenza Vaccine 60 mcg/0.5 mL SYR (4YR UP) IM ONE (10:00)
[2017-09-21] MEDS ORDERED: Potassium Chloride 20 mEq ER Tab PO ONE (11:00)
--- NOTE | 2017-09-21 12:19 | CP.PCM.PN ---
<Kulwant Ronquillo - Last Filed: 09/21/17 17:57> Subjective - Date & Time of Evaluation Date of Evaluation: 09/21/17 Time of Evaluation: 07:19 - Subjective Subjective: Kulwant Owusu Gate Technician-PGY1 Patient seen and examined at bedside. Per nursing no acute events occurred over midnight. The patient reports some constipation. The patient reports an improvement in the black tarry stools and reports the color has changed bar back to normal. The patient denies any abdominal pain, chest pain, headaches , lightheadedness, dizziness, changes in vision, nausea, vomiting, fevers, chills, or any other complaints. Objective - Vital Signs/Intake and Output Vital Signs (last 24 hours): Temp Pulse Resp BP Pulse Ox 97.1 F L 69 19 128/82 100 09/21/17 08:50 09/21/17 09:20 09/21/17 09:20 09/21/17 09:20 09/21/17 09:20 Intake and Output: 09/21/17 09/21/17 06:59 18:59 Intake Total 0 Balance 0 - Medications Medications: Current Medications Acetaminophen (Tylenol 325mg Tab) 650 mg PO Q6 PRN PRN Reason: Headache Last Admin: 09/20/17 08:51 Dose: 650 mg Dextrose (Dextrose 50% Inj) 0 ml IV STAT PRN; Protocol PRN Reason: Hypoglycemia Protocol Dextrose (Glutose 15) 0 gm PO ONCE PRN; Protocol PRN Reason: Hypoglycemia Protocol Docusate Sodium (Colace) 100 mg PO BID [facility] Last Admin: 09/21/17 10:28 Dose: 100 mg Glucagon (Glucagen Diagnostic Kit) 0 mg IM STAT PRN; Protocol PRN Reason: Hypoglycemia Protocol Dextrose (Dextrose 5% In Water 1000 Ml) 1,000 mls @ 0 mls/hr IV .Q0M PRN; Protocol; Per Protocol PRN Reason: Hypoglycemia Protocol Insulin Human Regular (Novolin R) 0 unit SC ACHS [facility] PRN Reason: Protocol Last Admin: 09/21/17 12:05 Dose: Not Given Lisinopril (Zestril) 2.5 mg PO DAILY [facility] Metformin HCl (Glucophage) 500 mg PO DAILY [facility] Pantoprazole Sodium (Protonix Inj) 40 mg IVP Q12H [facility] Last Admin: 09/21/17 10:36 Dose: 40 mg Pneumococcal Polyvalent Vaccine (Pneumovax 23 Vaccine) 0.5 ml IM .ONCE ONE Stop: 09/22/17 14:01 Rosuvastatin Calcium (Crestor) 5 mg PO HS [facility] - Labs Labs: 09/21/17 07:07 09/21/17 07:07 PT 12.7 SECONDS (9.7-12.2) H 09/18/17 22:08 INR 1.1 09/18/17 22:08 APTT 23 SECONDS (21-34) 09/18/17 22:08 - Head Exam Head Exam: ATRAUMATIC, NORMAL INSPECTION, NORMOCEPHALIC - Eye Exam Eye Exam: EOMI, Normal appearance, PERRL. absent: Periorbital tenderness Pupil Exam: NORMAL ACCOMODATION, PERRL. absent: Irregular, Unequal - ENT Exam ENT Exam: Mucous Membranes Moist, Normal Exam, Normal Oropharynx Additional comments: palate and buccal mucosal bruising improvement from yesterday;. - Neck Exam Neck Exam: Normal Inspection. absent: Lymphadenopathy, Thyromegaly - Respiratory Exam Respiratory Exam: Clear to Ausculation Bilateral, NORMAL BREATHING PATTERN. absent: Chest Wall Tenderness, Prolonged Expiratory Phase, Respiratory Distress - Cardiovascular Exam Cardiovascular Exam: REGULAR RHYTHM, +S1, +S2 - GI/Abdominal Exam GI & Abdominal Exam: Soft, Normal Bowel Sounds. absent: Hyperactive Bowel Sounds - Extremities Exam Extremities Exam: Full ROM. absent: Joint Swelling, Pedal Edema - Back Exam Back Exam: NORMAL INSPECTION. absent: CVA tenderness (L), CVA tenderness (R), paraspinal tenderness - Neurological Exam Neurological Exam: Alert, Awake, CN II-XII Intact, Oriented x3 - Psychiatric Exam Psychiatric exam: Normal Affect, Normal Mood - Skin Skin Exam: Dry, Intact, Normal Color, Warm - Additional Findings Additional findings: Bruising on the arms bilaterally still present. Assessment and Plan - Assessment and Plan (Free Text) Plan: 1). Anemia Secondary to GI Bleed H/H stable at this time. Will continue to monitor with serial CBC's. Protonix 40 mg IV Q12H EGD results showed: Grade A esophagitis, Hiatus hernia Colonoscopy completed. Showed 2-3 mm polyps in the distal sigmoid colon, ascending colon, proximally ascending colon, and cecum that were resected. Internal hemorrhoids Recommendations: Return to regular diet, avoid NSAIDS, and have a repeat colonoscopy in 3-5 years. Patient was counseled at length about decreasing the amount of lemon juice drank as it could negatively affect his recovery. 2). Leukocytosis NO shift noted. Trending down. Chest X Ray (as part of obstruction series) shows NO active disease There is NO fever and rest of vitals are stable Stress response? 3). Hyponatremia (Resolved) No intervention at this time. Will continue to monitor with serial CMP's. 4). Hx DM 2 ? Hypoglycemic Protocol Metformin 500mg Started today. Will continue to monitor with accuchecks. 5). Prophylaxis Protonix as above HOLD anticoagulation considering the Anemia from the likely GI Bleed Continue Colace 100 mg PO 2x/day He has NO Advance Directive FULL CODE Chanel Sorto [phone] his Health Care Proxy. <Jayson Angel - Last Filed: 09/21/17 18:35> Objective - Vital Signs/Intake and Output Vital Signs (last 24 hours): Temp Pulse Resp BP Pulse Ox 98.1 F 74 18 110/65 98 09/21/17 15:00 09/21/17 16:31 09/21/17 15:00 09/21/17 15:00 09/21/17 15:00 Intake and Output: 09/21/17 09/21/17 06:59 18:59 Intake Total 0 Balance 0 - Medications Medications: Current Medications Acetaminophen (Tylenol 325mg Tab) 650 mg PO Q6 PRN PRN Reason: Headache Last Admin: 09/20/17 08:51 Dose: 650 mg Dextrose (Dextrose 50% Inj) 0 ml IV STAT PRN; Protocol PRN Reason: Hypoglycemia Protocol Dextrose (Glutose 15) 0 gm PO ONCE PRN; Protocol PRN Reason: Hypoglycemia Protocol Docusate Sodium (Colace) 100 mg PO BID [facility] Last Admin: 09/21/17 18:02 Dose: 100 mg Glucagon (Glucagen Diagnostic Kit) 0 mg IM STAT PRN; Protocol PRN Reason: Hypoglycemia Protocol Dextrose (Dextrose 5% In Water 1000 Ml) 1,000 mls @ 0 mls/hr IV .Q0M PRN; Protocol; Per Protocol PRN Reason: Hypoglycemia Protocol Insulin Human Regular (Novolin R) 0 unit SC ACHS [facility] PRN Reason: Protocol Last Admin: 09/21/17 17:43 Dose: Not Given Lisinopril (Zestril) 2.5 mg PO DAILY [facility] Metformin HCl (Glucophage) 500 mg PO DAILY [facility] Pantoprazole Sodium (Protonix Inj) 40 mg IVP Q12H [facility] Last Admin: 09/21/17 10:36 Dose: 40 mg Pneumococcal Polyvalent Vaccine (Pneumovax 23 Vaccine) 0.5 ml IM .ONCE ONE Stop: 09/22/17 14:01 Rosuvastatin Calcium (Crestor) 5 mg PO HS [facility] - Labs Labs: 09/21/17 07:07 09/21/17 07:07 PT 12.7 SECONDS (9.7-12.2) H 09/18/17 22:08 INR 1.1 09/18/17 22:08 APTT 23 SECONDS (21-34) 09/18/17 22:08 Attending/Attestation - Attestation I have personally seen and examined this patient.: Yes I have fully participated in the care of the patient.: Yes I have reviewed all pertinent clinical information, including history, physical exam and plan: Yes Notes (Text): 09/21/17 18:30 Hospitalist Progress Note Patient was seen and examined at 11:30 AM 09/21/17 657 A with the help of In- Demand Interpretor Malika [id number]. 57 year old male who was admitted morning of 09/19/17 with complaints of black stools. He had an unspecified sandwich on this past Monday. Shortly afterwards, he had soft black movement and has been having at least 2 of these per day since. Associated with with the black bowel movements is SOB and Lightheadedness and therefore he came to the ER. CT Abdomen/Pelvis did not reveal any significant acute process (please see full report). Obstruction Series did NOT reveal any obstruction but did show retain stool. Upper EGD revealed esophagitis but no ulcers. Bedside Guaiac 09/19/17 was POSITIVE. His Hgb was in the low 7 and he was transfused 1 unit of PRBC on morning of 09/19/17 and 2 more units during the day on 09/19/17. HgB/Hct subsequently remained stable but patient continued to have black bowel movements on 09/20/17. Colonoscopy was done on 09/21/17 and showed multiple sessile polyps and biopsy reports are pending NO chest pain NO palpitations NO dysphagia/odynophagia NO abdominal pain NO n/v/d/c NO headache NO changes in vision NO changes in hearing NO paresthesias NO edema Exam: General: AAOX3, NAD HEENT: NCA, EOMI, PERRLA, NO thyromegaly, NO cervical/supraclavicular/ submandibular lymphadenopathy, NO pharyngeal erythema/exudate Cardio: NS1 and NS2, NO M/R/G Resp: CTA B/L , NO R/R/W GI: BSx4, soft, NT, ND, NO HSM, NO guarding/rebound tenderness Ext: NO edema, Pulses are strong and equal, Capillary Refill is 2 seconds Neuro: CN II through XII are grossly intact Assessment and Plan: 1). Anemia Secondary to GI Bleed Has received 3 units PRBC since admission Protonix 40 mg IV Q12H Colonoscopy 09/21/17: multiple sessile polyps. F/U biopsy reports. GI Dr. Campbell help is appreciated 2). Leukocytosis NO shift noted Chest X Ray (as part of obstruction series) shows NO active disease There is NO fever and rest of vitals are stable Stress response? Trending down 3). Hyponatremia This has essentially resolved 4). Hx DM 2 HgBA1C is 7.6 Hypoglycemic Protocol [facility] NOT on any medications at home and states that he has controlled this with Lemon Juice daily. Added Metformin 500 mg PO 1x/day, Lisinopril 2.5 mg PO 1x/day, and Crestor 5 mg PO 1x/day (to be converted to Atorvastatin 10 mg PO 1x/day at the time of discharge). 5). Prophylaxis Protonix as above HOLD anticoagulation considering the Anemia from the likely GI Bleed Colace 100 mg PO 2x/day Tylenol 650 mg PO Q6H PRN [facility] Changed to Diabetic Diet He has NO Advance Directive He would like to be FULL CODE He has designated Chanel Sorto [phone] as his Health Care Proxy Disposition: plan for discharge morning 09/22/17 as long as Hgb/Hct remain stable. Will need to follow up polyp biopsy report through clinic and follow up with clinic to help coordinate his care. Jayson Angel D.O.
[2017-09-21] MEDS ORDERED: Simethicone 80 mg Chewtab PO STA (21:34)
[2017-09-22 01:26] VITALS: RESP 20
[2017-09-22] MEDS: (Novolin R) Insulin Human Regular 100 units/ml vial SC SCH ×2 (07:39→12:02)
[2017-09-22 07:58] LABS: BASO % 0.4 % (0.0-2.0); EOS # 0.1 K/uL (0.0-0.7); EOS % 1.2 % (0.0-4.0); HEMOGLOBIN 10.2 g/dL (12.0-18.0); LYMPH # 1.8 K/uL (1.0-4.3); LYMPH % 14.3 % (20.0-40.0); MEAN CELL VOLUME 83.6 fL (80.0-94.0); MEAN CORPUSCULAR HEMOGLOBIN 29.1 pg (27.0-31.0); MEAN CORPUSCULAR HGB CONC 34.8 g/dL (33.0-37.0); MONO # 0.8 K/uL (0.0-0.8); MONO % 6.6 % (0.0-10.0); NEUT # 9.6 K/uL (1.8-7.0); NEUT % 77.5 % (50.0-75.0); RBC 3.53 Mil/uL (4.40-5.90); RED CELL DISTRIBUTION WIDTH 14.1 % (11.5-14.5); WHITE BLOOD COUNT 12.3 K/uL (4.8-10.8)
[2017-09-22 08:20] LABS: ALB/GLOB RATIO 1.2 (1.0-2.1); ALBUMIN 3.4 g/dL (3.5-5.0); ALT/SGPT 115 U/L (21-72); AST/SGOT 71 U/L (17-59); BLOOD UREA NITROGEN 7 mg/dL (9-20); CALCIUM 8.5 mg/dl (8.6-10.4); GFR AFRICAN-AMERICAN > 60; GFR NON-AFRICAN AMERICAN > 60; MAGNESIUM 2.1 mg/dL (1.6-2.3)
[2017-09-22 08:24] VITALS: BP 116/76; TEMP 98.2; O2SAT 99
--- NOTE | 2017-09-22 09:21 | CP.PCM.PN ---
Subjective - Date & Time of Evaluation Date of Evaluation: 09/22/17 Time of Evaluation: 09:00 - Subjective Subjective: Hospitalist Progress Note Patient was seen and examined at 9 AM 09/22/17 657 A with the help of Nurse Bibiana who translated in [place] Citizen. 57 year old male who was admitted morning of 09/19/17 with complaints of black stools. He had an unspecified sandwich on this past Monday. Shortly afterwards, he had soft black movement and has been having at least 2 of these per day since. Associated with with the black bowel movements is SOB and Lightheadedness and therefore he came to the ER. CT Abdomen/Pelvis did not reveal any significant acute process (please see full report). Obstruction Series did NOT reveal any obstruction but did show retain stool. Upper EGD revealed esophagitis but no ulcers. Bedside Guaiac 09/19/17 was POSITIVE. His Hgb was in the low 7 and he was transfused 1 unit of PRBC on morning of 09/19/17 and 2 more units during the day on 09/19/17. HgB/Hct subsequently remained stable but patient continued to have black bowel movements on 09/20/17. Colonoscopy was done on 09/21/17 and showed multiple sessile polyps and biopsy reports are pending. His HgB/Hct remained stable on 09/22/17 and he had NO more black stools. He was deemed stable for discharge on 09/22/17 with further management as outpatient through [facility]. NO chest pain NO palpitations NO dysphagia/odynophagia NO abdominal pain NO n/v/d/c NO headache NO changes in vision NO changes in hearing NO paresthesias NO edema Exam: General: AAOX3, NAD HEENT: NCA, EOMI, PERRLA, NO thyromegaly, NO cervical/supraclavicular/ submandibular lymphadenopathy, NO pharyngeal erythema/exudate Cardio: NS1 and NS2, NO M/R/G Resp: CTA B/L , NO R/R/W GI: BSx4, soft, NT, ND, NO HSM, NO guarding/rebound tenderness Ext: NO edema, Pulses are strong and equal, Capillary Refill is 2 seconds Neuro: CN II through XII are grossly intact Assessment and Plan: 1). Anemia Secondary to GI Bleed Has received 3 units PRBC since admission Protonix 40 mg IV Q12H Colonoscopy 09/21/17: multiple sessile polyps. F/U biopsy reports through clinic GI Dr. Campbell help is appreciated 2). Leukocytosis NO shift noted Chest X Ray (as part of obstruction series) shows NO active disease There is NO fever and rest of vitals are stable Stress response? Continues to trending down 3). Hyponatremia This has essentially resolved 4). Hx DM 2 HgBA1C is 7.6 Hypoglycemic Protocol [facility] NOT on any medications at home and states that he has controlled this with Lemon Juice daily. Added Metformin 500 mg PO 1x/day, Lisinopril 2.5 mg PO 1x/day, and Crestor 5 mg PO 1x/day (to be converted to Atorvastatin 10 mg PO 1x/day at the time of discharge 09/22/17). 5). Prophylaxis Protonix as above HELD anticoagulation considering the Anemia from the likely GI Bleed Colace 100 mg PO 2x/day Tylenol 650 mg PO Q6H PRN [facility]ON[facility] Changed to Diabetic Diet He has NO Advance Directive He would like to be FULL CODE He has designated Chanel Sorto [phone] as his Health Care Proxy The following instructions were explained to patient and a copy will need to be provided to him in [place] upon discharge: 1). Schedule follow up with the [facility] located on [address] [facility] in [place], [place] by calling for an appointment to take place in the next 7 to 10 days. This health center will be your primary care center and will help to coordinate your health care, provide with you with referrals, and future prescriptions. 2). Through the [facility] you will need to follow up the biopsies that were taken at the time of your Colonoscopy. 3). STOP drinking lemon juice. 4). DO NOT TAKE any NSAIDS such as Diclofenac, Advil, Ibuprofen, Motrin, Naprosyn as these can cause bleeding. 5). You have Diabetes and will need close follow up for this through [facility]. 6). You were provided with prescriptions for the following medications. Please have them filled at [facility] and take as directed: Metformin 500 mg, 1 tablet by mouth 1x/day with breakfast, Disp #30, NO refills Lisinopril 2.5 mg, 1 tablet by mouth 1x/day with breakfast, Disp #30, NO refills Atorvastatin 10 mg, 1 tablet by mouth 1x/day with dinner, Disp #30, NO refills 7). You must obtain referrals for the following through [facility]: Switchboard Operator Helper for possible Capsule Endoscopy Podiatry for Diabetic Feet Examination Opthalmology for Retinal Eye Exam, Glaucoma Screening, and Vision Test 8). Failure to follow the above instructions will cause serious harm to your health. 9). Please take care and be well. Jayson Angel D.O. Objective - Vital Signs/Intake and Output Vital Signs (last 24 hours): Temp Pulse Resp BP Pulse Ox 98.2 F 76 20 116/76 99 09/22/17 08:23 09/22/17 08:23 09/22/17 08:23 09/22/17 08:23 09/22/17 08:23 Intake and Output: 09/22/17 09/22/17 06:59 18:59 Intake Total 660 Balance 660 - Medications Medications: Current Medications Acetaminophen (Tylenol 325mg Tab) 650 mg PO Q6 PRN PRN Reason: Headache Last Admin: 09/20/17 08:51 Dose: 650 mg Dextrose (Dextrose 50% Inj) 0 ml IV STAT PRN; Protocol PRN Reason: Hypoglycemia Protocol Dextrose (Glutose 15) 0 gm PO ONCE PRN; Protocol PRN Reason: Hypoglycemia Protocol Docusate Sodium (Colace) 100 mg PO BID [facility] Last Admin: 09/22/17 09:06 Dose: 100 mg Glucagon (Glucagen Diagnostic Kit) 0 mg IM STAT PRN; Protocol PRN Reason: Hypoglycemia Protocol Dextrose (Dextrose 5% In Water 1000 Ml) 1,000 mls @ 0 mls/hr IV .Q0M PRN; Protocol; Per Protocol PRN Reason: Hypoglycemia Protocol Insulin Human Regular (Novolin R) 0 unit SC ACHS [facility] PRN Reason: Protocol Last Admin: 09/22/17 07:39 Dose: Not Given Lisinopril (Zestril) 2.5 mg PO DAILY [facility] Last Admin: 09/22/17 09:06 Dose: 2.5 mg Metformin HCl (Glucophage) 500 mg PO DAILY [facility] Last Admin: 09/22/17 09:06 Dose: 500 mg Pantoprazole Sodium (Protonix Inj) 40 mg IVP Q12H [facility] Last Admin: 09/22/17 09:08 Dose: 40 mg Pneumococcal Polyvalent Vaccine (Pneumovax 23 Vaccine) 0.5 ml IM .ONCE ONE Stop: 09/22/17 14:01 Rosuvastatin Calcium (Crestor) 5 mg PO HS [facility] Last Admin: 09/21/17 21:29 Dose: 5 mg - Labs Labs: 09/22/17 07:24 09/22/17 07:24 PT 12.7 SECONDS (9.7-12.2) H 09/18/17 22:08 INR 1.1 09/18/17 22:08 APTT 23 SECONDS (21-34) 09/18/17 22:08
[2017-09-22] MEDS ORDERED: Pneumococcal 23-Valent Vaccine IM ONE ×2 (11:45→14:00)
[2017-09-22 12:11] VITALS: PULSE 77
--- NOTE | 2017-09-22 18:20 | CP.PCM.DIS ---
<YgIndigon - Last Filed: 09/22/17 19:07> Provider - Provider Date of Admission: 09/19/17 00:30 Attending physician: Dimas Luna MD Primary care physician: PMD: None Consults: TAMRA: Adrian Time Spent in preparation of Discharge (in minutes): 45 Hospital Course - Lab Results Lab Results: Most Recent Lab Values WBC 12.3 K/uL (4.8-10.8) H 09/22/17 07:24 RBC 3.53 Mil/uL (4.40-5.90) L 09/22/17 07:24 Hgb 10.2 g/dL (12.0-18.0) L 09/22/17 07:24 Hct 29.5 % (35.0-51.0) L 09/22/17 07:24 MCV 83.6 fL (80.0-94.0) 09/22/17 07:24 MCH 29.1 pg (27.0-31.0) 09/22/17 07:24 MCHC 34.8 g/dL (33.0-37.0) 09/22/17 07:24 RDW 14.1 % (11.5-14.5) 09/22/17 07:24 Plt Count 373 K/uL (130-400) 09/22/17 07:24 MPV 8.0 fL (7.2-11.7) 09/22/17 07:24 Neut % (Auto) 77.5 % (50.0-75.0) H 09/22/17 07:24 Lymph % (Auto) 14.3 % (20.0-40.0) L 09/22/17 07:24 [place] % (Auto) 6.6 % (0.0-10.0) 09/22/17 07:24 Eos % (Auto) 1.2 % (0.0-4.0) 09/22/17 07:24 Baso % (Auto) 0.4 % (0.0-2.0) 09/22/17 07:24 Neut # 9.6 K/uL (1.8-7.0) H 09/22/17 07:24 Lymph # 1.8 K/uL (1.0-4.3) 09/22/17 07:24 [place] # 0.8 K/uL (0.0-0.8) 09/22/17 07:24 Eos # 0.1 K/uL (0.0-0.7) 09/22/17 07:24 Baso # 0.0 K/uL (0.0-0.2) 09/22/17 07:24 PT 12.7 SECONDS (9.7-12.2) H 09/18/17 22:08 INR 1.1 09/18/17 22:08 APTT 23 SECONDS (21-34) 09/18/17 22:08 Sodium 132 mmol/L (132-148) 09/22/17 07:24 Potassium 3.8 mmol/L (3.6-5.2) 09/22/17 07:24 Chloride 98 mmol/L (98-107) 09/22/17 07:24 Carbon Dioxide 28 mmol/L (22-30) 09/22/17 07:24 Anion Gap 10 (10-20) 09/22/17 07:24 BUN 7 mg/dL (9-20) L 09/22/17 07:24 Creatinine 1.0 mg/dL (0.8-1.5) 09/22/17 07:24 Est GFR ( Amer) > 60 09/22/17 07:24 Est GFR (Non-Af Amer) > 60 09/22/17 07:24 POC Glucose (mg/dL) 125 mg/dL (65-110) H 09/22/17 11:23 Random Glucose 121 mg/dL (75-110) H 09/22/17 07:24 Hemoglobin A1c 7.6 % (4.2-6.5) H 09/20/17 07:36 Calcium 8.5 mg/dl (8.6-10.4) L 09/22/17 07:24 Phosphorus 4.8 mg/dL (2.5-4.5) H 09/22/17 07:24 Magnesium 2.1 mg/dL (1.6-2.3) 09/22/17 07:24 Total Bilirubin 0.4 mg/dL (0.2-1.3) 09/22/17 07:24 AST 71 U/L (17-59) H D 09/22/17 07:24 ALT 115 U/L (21-72) H D 09/22/17 07:24 Alkaline Phosphatase 49 U/L (38-126) 09/22/17 07:24 Total Protein 6.3 g/dL (6.3-8.3) 09/22/17 07:24 Albumin 3.4 g/dL (3.5-5.0) L 09/22/17 07:24 Globulin 2.9 gm/dL (2.2-3.9) 09/22/17 07:24 Albumin/Globulin Ratio 1.2 (1.0-2.1) 09/22/17 07:24 Triglycerides 183 mg/dL (0-149) H 09/20/17 07:36 Cholesterol 166 mg/dL (0-199) 09/20/17 07:36 LDL Cholesterol Direct 106 mg/dL (0-129) 09/20/17 07:36 HDL Cholesterol 26 mg/dL (30-70) L 09/20/17 07:36 Lipase 76 U/L (23-300) 09/18/17 22:08 Free T4 1.30 ng/dL (0.78-2.19) 09/20/17 07:36 TSH 3rd Generation 2.62 mIU/L (0.46-4.68) 09/20/17 07:36 Urine Color Straw (YELLOW) 09/18/17 22:08 Urine Clarity Clear (Clear) 09/18/17 22:08 Urine pH 5.0 (5.0-8.0) 09/18/17 22:08 Ur Specific [place] 1.020 (1.003-1.030) 09/18/17 22:08 Urine Protein Negative mg/dL (NEGATIVE) 09/18/17 22:08 Urine Glucose (UA) 1+ mg/dL (Normal) H 09/18/17 22:08 Urine Ketones Negative mg/dL (NEGATIVE) 09/18/17 22:08 Urine Blood Negative (NEGATIVE) 09/18/17 22:08 Urine Nitrate Negative (NEGATIVE) 09/18/17 22:08 Urine Bilirubin Negative (NEGATIVE) 09/18/17 22:08 Urine Urobilinogen Normal mg/dL (0.2-1.0) 09/18/17 22:08 Ur Leukocyte Esterase Neg Zenia/uL (Negative) 09/18/17 22:08 Urine WBC (Auto) 2 /hpf (0-5) 09/18/17 22:08 Urine RBC (Auto) < 1 /hpf (0-3) 09/18/17 22:08 Ur Squamous Epith Cells < 1 /hpf (0-5) 09/18/17 22:08 Blood Type B POSITIVE 09/19/17 00:56 Blood Type Confirm B POSITIVE 09/19/17 00:56 Antibody Screen Negative 09/19/17 00:56 - Hospital Course Hospital Course: Discharge Summary PMD: None Consults: GI (Dr. Campbell) PRINCIPAL DISCHARGE DIAGNOSES: Anemia 2/2 GI Bleed DM 2 CC: black stools HISTORY OF PRESENT ILLNESS: 57M with PMHx of Osteoarthritis presents to the ED with dark stools x 5 days. Patient reports he went out to eat Monday and ate a bread custard, afterwards he had several episodes of diarrhea. After his 2-3 episode, he noted dark, tarry stools. He continued to feel feverish, chills, nausea, abdominal pain, SOB, dizziness, and 2-4 dark tarry stools per day. Patient came to the ED due to weakness and fatigue and persistent dark stools. Denied any prior EGD, Colonoscopy. Denied fever, chills, headache, chest pain, n /v/d/c, or urinary symptoms. PMHx: Osteoarthritis, IGT PSHx: Denied Meds: Heavy Diclofenac use for OA All: NKDA SHx: Denied tobacco, ETOH, or illicit drug use FHx: Unremarkable SUMMARY OF COURSE: Davey Collier is a 57-year-old Martiniquais-speaking male who was admitted to [facility] on 09/18/2017-09/22/2017 for a GI bleed. His past medical history is significant for osteoarthritis and diabetes mellitus type 2. While at the hospital, was transfused due to anemia and had imaging as stated below. GI consult, Dr. Campbell, says to consider an ulcer and to follow up outpatient. He is to follow up polyp biopsy report through the clinic and follow up with the clinic to help coordinate his care. Imaging: Obstruction series 09/18: no obstruction. No infiltrate. Stool retention. No evidence of mechanical bowel obstruction. Bilateral shoulder arthrosis. CT Abdomen/Pelvis 09/18: no significant acute process. No definite cause for pain identified (please see full report) Upper EGD 09/19/17: esophagitis but no ulcers. No bleeding. Medium-sized hiatus hernia present. Bedside guaiac 09/19: positive Colonoscopy 09/21: multiple sessile polyps. Biopsy reports pending. DISCHARGE MEDICATIONS: Prescriptions have been placed in front of the chart The following instructions were explained to patient and a copy will need to be provided to him in Martiniquais upon discharge: 1). Schedule follow up with the [facility] located on [address] [facility] in [place], [place] by calling for an appointment to take place in the next 7 to 10 days. This health center will be your primary care center and will help to coordinate your health care, provide with you with referrals, and future prescriptions. 2). Through the [facility] you will need to follow up the biopsies that were taken at the time of your Colonoscopy. 3). STOP drinking lemon juice. 4). DO NOT TAKE any NSAIDS such as Diclofenac, Advil, Ibuprofen, Motrin, Naprosyn as these can cause bleeding. 5). You have Diabetes and will need close follow up for this through [facility]. 6). You were provided with prescriptions for the following medications. Please have them filled at [facility] and take as directed: Metformin 500 mg, 1 tablet by mouth 1x/day with breakfast, Disp #30, NO refills Lisinopril 2.5 mg, 1 tablet by mouth 1x/day with breakfast, Disp #30, NO refills Atorvastatin 10 mg, 1 tablet by mouth 1x/day with dinner, Disp #30, NO refills Pepcid 20 mg, 1 tablet by mouth 2x/day (breakfast and dinner), Disp #60, NO refills 7). You must obtain referrals for the following through [facility]: Roofing Technician for possible Capsule Endoscopy Podiatry for Diabetic Feet Examination Opthalmology for Retinal Eye Exam, Glaucoma Screening, and Vision Test 8). Failure to follow the above instructions will cause serious harm to your health. 9). Please take care and be well. Discharge Exam - Head Exam Head Exam: ATRAUMATIC, NORMAL INSPECTION, NORMOCEPHALIC - Eye Exam Eye Exam: EOMI, Normal appearance, PERRL Pupil Exam: NORMAL ACCOMODATION, PERRL. absent: Irregular, Unequal - ENT Exam ENT Exam: Mucous Membranes Moist, Normal Oropharynx - Respiratory Exam Respiratory Exam: Clear to PA & Lateral, NORMAL BREATHING PATTERN, UNREMARKABLE. absent: Decreased Breath Sounds, Rales - Cardiovascular Exam Cardiovascular Exam: REGULAR RHYTHM, RRR, +S1, +S2. absent: Gallop, Rubs - GI/Abdominal Exam GI & Abdominal Exam: Normal Bowel Sounds, Unremarkable. absent: Hypoactive Bowel Sounds, Organomegaly - Extremities Exam Extremities exam: full ROM, normal inspection - Back Exam Back exam: NORMAL INSPECTION. absent: CVA tenderness (L), CVA tenderness (R), paraspinal tenderness - Neurological Exam Neurological exam: Alert, CN II-XII Intact, Oriented x3 - Psychiatric Exam Psychiatric exam: Normal Affect, Normal Mood - Skin Skin Exam: Dry, Intact, Normal Color, Warm Discharge Plan - Discharge Medications Prescriptions: Atorvastatin [Lipitor] 10 mg PO DIN #30 tab Famotidine [Pepcid] 20 mg PO BID #60 tab Lisinopril [Zestril] 2.5 mg PO DAILY #30 tab metFORMIN [glucOPHAGE] 500 mg PO DAILY #30 tab - Follow Up Plan Condition: GOOD Disposition: HOME/ ROUTINE Instructions: Lisinopril (By mouth), Famotidine (By mouth), Metformin (By mouth ), Atorvastatin (By mouth), Gastrointestinal Bleeding (DC), Colonoscopy (DC), Constipation (DC), Hyponatremia (DC), Diabetic Foot Care (DC), Basic Carbohydrate Counting (DC), Meal Planning with the Plate Method (DC), Meal Planning with Diabetes Exchanges (DC), Upper Endoscopy (DC), Acute Abdominal Pain (DC), Anemia (DC) Additional Instructions: The following instructions were explained to patient and a copy will need to be provided to him in Martiniquais upon discharge: 1). Schedule follow up with the [facility] located on [address] [facility] in [place], [place] by calling for an appointment to take place in the next 7 to 10 days. This health center will be your primary care center and will help to coordinate your health care, provide with you with referrals, and future prescriptions. 2). Through the [facility] you will need to follow up the biopsies that were taken at the time of your Colonoscopy. 3). STOP drinking lemon juice. 4). DO NOT TAKE any NSAIDS such as Diclofenac, Advil, Ibuprofen, Motrin, Naprosyn as these can cause bleeding. 5). You have Diabetes and will need close follow up for this through [facility]. 6). You were provided with prescriptions for the following medications. Please have them filled at [facility] and take as directed: Metformin 500 mg, 1 tablet by mouth 1x/day with breakfast, Disp #30, NO refills Lisinopril 2.5 mg, 1 tablet by mouth 1x/day with breakfast, Disp #30, NO refills Atorvastatin 10 mg, 1 tablet by mouth 1x/day with dinner, Disp #30, NO refills Pepcid 20 mg, 1 tablet by mouth 2x/day (breakfast and dinner), Disp #60, NO refills 7). You must obtain referrals for the following through [facility]: Roofing Technician for possible Capsule Endoscopy Podiatry for Diabetic Feet Examination Opthalmology for Retinal Eye Exam, Glaucoma Screening, and Vision Test 8). Failure to follow the above instructions will cause serious harm to your health. 9). Please take care and be well. Referrals: [facility] at [facility] [Outside] <Jayson Angel - Last Filed: 09/22/17 20:42> Provider - Provider Date of Admission: 09/19/17 00:30 Attending physician: Dimas Luna MD Hospital Course - Lab Results Lab Results: Most Recent Lab Values WBC 12.3 K/uL (4.8-10.8) H 09/22/17 07:24 RBC 3.53 Mil/uL (4.40-5.90) L 09/22/17 07:24 Hgb 10.2 g/dL (12.0-18.0) L 09/22/17 07:24 Hct 29.5 % (35.0-51.0) L 09/22/17 07:24 MCV 83.6 fL (80.0-94.0) 09/22/17 07:24 MCH 29.1 pg (27.0-31.0) 09/22/17 07:24 MCHC 34.8 g/dL (33.0-37.0) 09/22/17 07:24 RDW 14.1 % (11.5-14.5) 09/22/17 07:24 Plt Count 373 K/uL (130-400) 09/22/17 07:24 MPV 8.0 fL (7.2-11.7) 09/22/17 07:24 Neut % (Auto) 77.5 % (50.0-75.0) H 09/22/17 07:24 Lymph % (Auto) 14.3 % (20.0-40.0) L 09/22/17 07:24 [place] % (Auto) 6.6 % (0.0-10.0) 09/22/17 07:24 Eos % (Auto) 1.2 % (0.0-4.0) 09/22/17 07:24 Baso % (Auto) 0.4 % (0.0-2.0) 09/22/17 07:24 Neut # 9.6 K/uL (1.8-7.0) H 09/22/17 07:24 Lymph # 1.8 K/uL (1.0-4.3) 09/22/17 07:24 [place] # 0.8 K/uL (0.0-0.8) 09/22/17 07:24 Eos # 0.1 K/uL (0.0-0.7) 09/22/17 07:24 Baso # 0.0 K/uL (0.0-0.2) 09/22/17 07:24 PT 12.7 SECONDS (9.7-12.2) H 09/18/17 22:08 INR 1.1 09/18/17 22:08 APTT 23 SECONDS (21-34) 09/18/17 22:08 Sodium 132 mmol/L (132-148) 09/22/17 07:24 Potassium 3.8 mmol/L (3.6-5.2) 09/22/17 07:24 Chloride 98 mmol/L (98-107) 09/22/17 07:24 Carbon Dioxide 28 mmol/L (22-30) 09/22/17 07:24 Anion Gap 10 (10-20) 09/22/17 07:24 BUN 7 mg/dL (9-20) L 09/22/17 07:24 Creatinine 1.0 mg/dL (0.8-1.5) 09/22/17 07:24 Est GFR ( Amer) > 60 09/22/17 07:24 Est GFR (Non-Af Amer) > 60 09/22/17 07:24 POC Glucose (mg/dL) 125 mg/dL (65-110) H 09/22/17 11:23 Random Glucose 121 mg/dL (75-110) H 09/22/17 07:24 Hemoglobin A1c 7.6 % (4.2-6.5) H 09/20/17 07:36 Calcium 8.5 mg/dl (8.6-10.4) L 09/22/17 07:24 Phosphorus 4.8 mg/dL (2.5-4.5) H 09/22/17 07:24 Magnesium 2.1 mg/dL (1.6-2.3) 09/22/17 07:24 Total Bilirubin 0.4 mg/dL (0.2-1.3) 09/22/17 07:24 AST 71 U/L (17-59) H D 09/22/17 07:24 ALT 115 U/L (21-72) H D 09/22/17 07:24 Alkaline Phosphatase 49 U/L (38-126) 09/22/17 07:24 Total Protein 6.3 g/dL (6.3-8.3) 09/22/17 07:24 Albumin 3.4 g/dL (3.5-5.0) L 09/22/17 07:24 Globulin 2.9 gm/dL (2.2-3.9) 09/22/17 07:24 Albumin/Globulin Ratio 1.2 (1.0-2.1) 09/22/17 07:24 Triglycerides 183 mg/dL (0-149) H 09/20/17 07:36 Cholesterol 166 mg/dL (0-199) 09/20/17 07:36 LDL Cholesterol Direct 106 mg/dL (0-129) 09/20/17 07:36 HDL Cholesterol 26 mg/dL (30-70) L 09/20/17 07:36 Lipase 76 U/L (23-300) 09/18/17 22:08 Free T4 1.30 ng/dL (0.78-2.19) 09/20/17 07:36 TSH 3rd Generation 2.62 mIU/L (0.46-4.68) 09/20/17 07:36 Urine Color Straw (YELLOW) 09/18/17 22:08 Urine Clarity Clear (Clear) 09/18/17 22:08 Urine pH 5.0 (5.0-8.0) 09/18/17 22:08 Ur Specific [place] 1.020 (1.003-1.030) 09/18/17 22:08 Urine Protein Negative mg/dL (NEGATIVE) 09/18/17 22:08 Urine Glucose (UA) 1+ mg/dL (Normal) H 09/18/17 22:08 Urine Ketones Negative mg/dL (NEGATIVE) 09/18/17 22:08 Urine Blood Negative (NEGATIVE) 09/18/17 22:08 Urine Nitrate Negative (NEGATIVE) 09/18/17 22:08 Urine Bilirubin Negative (NEGATIVE) 09/18/17 22:08 Urine Urobilinogen Normal mg/dL (0.2-1.0) 09/18/17 22:08 Ur Leukocyte Esterase Neg Zenia/uL (Negative) 09/18/17 22:08 Urine WBC (Auto) 2 /hpf (0-5) 09/18/17 22:08 Urine RBC (Auto) < 1 /hpf (0-3) 09/18/17 22:08 Ur Squamous Epith Cells < 1 /hpf (0-5) 09/18/17 22:08 Blood Type B POSITIVE 09/19/17 00:56 Blood Type Confirm B POSITIVE 09/19/17 00:56 Antibody Screen Negative 09/19/17 00:56 Attending/Attestation - Attestation I have personally seen and examined this patient.: Yes I have fully participated in the care of the patient.: Yes I have reviewed all pertinent clinical information, including history, physical exam and plan: Yes
== END 2017-09-22 13:45 | disposition home or self-care (01) | DRG 812 ==
LOC: C.ER 18:30 → C.6T 09-19 00:30 → C.9E 09-19 01:18 → C.6T 09-19 02:50
PROVIDERS: ADMIT Internal Medicine; ATTEND Internal Medicine
PROC: 0DJ08ZZ Inspection of Upper Intestinal Tract, Via Natural or Artificial Opening Endoscopic (ICD-10-PCS; 2017-09-19)
PROC: 30233N1 Transfusion of Nonautologous Red Blood Cells into Peripheral Vein, Percutaneous Approach (ICD-10-PCS; principal; 2017-09-19 07:35)
PROC: 0DBE8ZX Excision of Large Intestine, Via Natural or Artificial Opening Endoscopic, Diagnostic (ICD-10-PCS; 2017-09-21)
DX: D50.0 Iron deficiency anemia secondary to blood loss (chronic) (principal); E87.1 Hypo-osmolality and hyponatremia; K92.1 Melena; K20.8 Other esophagitis; D12.2 Benign neoplasm of ascending colon; D12.0 Benign neoplasm of cecum; D12.5 Benign neoplasm of sigmoid colon; K64.8 Other hemorrhoids; D72.829 Elevated white blood cell count, unspecified; K59.00 Constipation, unspecified; K44.9 Diaphragmatic hernia without obstruction or gangrene